=== PATIENT | male | born 1950 | race Caucasian/White ===

== ENCOUNTER → 2021-09-21 11:55 | Outpatient (BNVA) | payer OTHER, SELFPAY | PROVIDERS: PCP Internal Medicine; Referring Provider Internal Medicine; Visit Provider Nurse Practitioner Family | DX: Z12.11 Encounter for screening for malignant neoplasm of colon (principal); K59.04 Chronic idiopathic constipation; I82.492 Acute embolism and thrombosis of other specified deep vein of left lower extremity | CPT/HCPCS: 99202 ==